=== PATIENT | female | born 1995 | race Caucasian/White ===

== ENCOUNTER 2017-09-23 20:25 | Outpatient (CLI) | payer MEDICAID, SELFPAY ==
[2017-09-23 20:57] VITALS: BMI 25.7
[2017-09-23 21:39] LABS: ROM Internal Control Test YES-OK TO RESULT pt. (Internal QC)
[2017-09-23 21:40] LABS: ROM Patient Test Negative (Negative)
[2017-09-23 22:05] VITALS: RESP 18
--- NOTE | 2017-09-25 08:12 | OB.TRI.NOTE ---
History of Present Illness Reason For Visit: R/O LABOR Home Medications Medication Instructions Recorded Vits [Prenatabs FA] 1 tablet PO DAILY 05/30/17 Allergies nickel Allergy (Verified 09/23/17 20:56) Rash Physical Exam Vitals: Vital Signs Resp 18 09/23/17 22:05 NST - FHR Rate Baby A Baseline: 135 Variability:: Moderate Accelerations:: 15 x 15 Decelerations:: Variable NST Reactive:: Yes Uterine Activity:: irregular Impression/Plan NST for false labor
== END 2017-09-23 22:05 | disposition home or self-care (01) ==
LOC: WPOUT 20:50 → WP 20:51
PROVIDERS: Family Provider Pediatrics; PCP Pediatrics; Visit Provider Obstetrics & Gynecology
DX: O47.9 False labor, unspecified (principal); Z3A.00 Weeks of gestation of pregnancy not specified
CPT/HCPCS: 59025; 59050; 84112; 99218; G0378

== ENCOUNTER 2017-09-28 06:00 | Inpatient (IN) | payer MEDICAID, SELFPAY ==
[2017-09-27 18:53] VITALS: BMI 25.2
[2017-09-27 23:37] LABS: Hemoglobin 13.2 g/dl (12.0-15.0); Mean Corp Hgb Conc 34.7 g/gl (32-36); Mean Corpuscular Hgb 30.1 pg (27.0-32.0); Mean Corpuscular Volume 86.6 fL (81-99); Mean Platelet Vol. 10.6 fl (6.2-12.0); Platelet Count 195 K/mm3 (150-450); RBC Distribution Width CV 12.4 % (11.6-14.6); RBC Distribution Width SD 39.6 fl (35.1-43.9); Red Blood Count 4.39 M/mm3 (4.2-5.4); White Blood Count 16.5 K/mm3 (4.4-11.0)
[2017-09-27 23:38] LABS: Scan Indicated on CBC? Y/N NO
[2017-09-27] MEDS: 0.9% NaCl Peripheral Flush Adult/Peds IV (23:46)
[2017-09-27] MEDS: Nalbuphine 10 MG/ML Ampul IV (23:46)
[2017-09-28] MEDS: Nalbuphine 10 MG/ML Ampul IV (05:00)
[2017-09-28] MEDS: Lactated Ringers 1,000 ML 50 ML IV ×2 (06:27→10:16)
--- NOTE | 2017-09-28 07:40 | HP.PCM_ITS ---
History Date of Admission: 09/28/17 Gestational age: 38.4 History of this : see [facility] prenatals Pertinent Past Medical History: none Allergies nickel Allergy (Verified 09/23/17 20:56) Rash Current Medications Acetaminophen (Tylenol) 325 - 650 mg PO Q4H PRN PRN PRN Reason: PAIN OR FEVER >100.4F Al Hydroxide/Mg Hydroxide (Mylanta Ii) 15 - 30 ml PO Q4H PRN PRN PRN Reason: INDIGESTION Citric Acid/Sodium Citrate (Bicitra) 30 ml PO UD PRN Lactated Ringer's () 1,000 mls @ 50 mls/hr IV .Q20H BROWN Nalbuphine HCl (Nubain) 5 - 10 mg IV Q3H PRN PRN PRN Reason: PAIN (4-10) Ondansetron HCl (Zofran) 4 mg IV Q8H PRN PRN PRN Reason: NAUSEA Promethazine HCl (Phenergan (Ll)) 6.25 - 12.5 mg IV Q4H PRN PRN; Protocol PRN Reason: IF NAUSEA PERSISTS Sodium Chloride () 5 - 30 ml IV UD PRN PRN Reason: SALINE FLUSH Last Admin: 09/27/17 23:46 Dose: 10 ml Sodium Chloride () 5 - 15 ml IV UD [facility] Smoking Status: Never smoker Alcohol: None Drug Use: none Number of Fetus(es): 1 Physical Exam General: Alert, Oriented x3 Abdomen: Soft, Non Tender, Non-Distended, Gravid Presentation: Cephalic Cervix Dilation (cm): 5 Station: -1 Effacement (%): 90 Assessment/Plan 21yo female @ 38&4 in labor Admit to L&D Epidural in place GBS negative EFW less than 4500g, patient with adequate pelvis AROM clear fluid FHT's - now 120's with mod variability & reassuring, s/p 6 minute decel with greg in 70's - resolved with oxygen/position changes, FSE placed Continue close observation
--- NOTE | 2017-09-28 08:44 | PCM.PN.BLA ---
Progress Note S: Patient laying back in bed, patient's mother and FOB at bedside providing support for patient. Patient remains comfortable after epidural. she reports occasional rectal pressure and has SVE recently done by nursing provider and was found to be 8cm/95%/-1. No further FHT decelerations noted O: VSS, Afebrile FHT baseline 120, minimal to moderate variability, no accels, no decels Ctx q 3-4 minutes SVE = Deferred A: 21 y/o , Term , Transition Stage of Labor, Category II FHT - reassuring P: 1) Continue present management 2) Encourage position changes 3) Anticipate Lauren Altamirano CNM
--- NOTE | 2017-09-28 11:50 | PCM.PN.BLA ---
Progress Note S: Patient found to be c/c/0 station by nursing staff at 0851. Patient labored down d/t not feeling urge to push yet. Patient then pushed on and off with nursing staff and is now +1 to +2 station. O: VSS, Afebrile FHT baseline 120, moderate variability, + accels, occasional early decels noted Ctx q 5-6 minutes, moderate strong to palpation SVE = 10/100/+2 A: Second stage of labor @ term, Labor Augmentation for protracted second stage P:1) Start pitocin IV per protocol for protracted second stage 2) Anticipate 3) OB back-up Dr. Ruggiero notified of patient progress Lauren Altamirano CNM
[2017-09-28] MEDS: Oxytocin 30 units/NS 500 ml 30 UNITS/500 ML IV.SOLN 334 UNITS IV (12:34)
--- NOTE | 2017-09-28 13:05 | PCM.OB.VAG ---
Vaginal Delivery Maternal Presentation: Active Labor Amniotic Membrane Rupture Type: Artificial Amniotic Fluid Description: Clear Final JUAN: 10/08/17 Final JUAN Source: LMP Gestational age: 38 Weeks and 4 Days Date of Procedure: 09/28/17 Pre-Operative Diagnosis: Labor Post-Operative Diagnosis: Surgery/ Procedure Performed: Spontaneous Vaginal Delivery Type of Anesthesia: Epidural Description of Procedure: Patient pushed well with guidance initially, epidural turned down so patient could fell urge to push and 2nd stage IV pitocin for labor augmentation used. PItocin only increased to 2 milliunits prior to delivery. Viable girl born over intact perineum at 1230 with spontaneous cry and respirations. Apgars 8 and 9. dried and stimulated and mouth and nose bulb suctioned. Short umbilical cord noted, cord clamped and cut by FOB once pulsing slowed. Placenta then delivered spontaneously via Barraza mechanism intact with 3VC. Placenta notable for 3cm/3cm beige-mobley lesion and calcifications. FF to massage and was midline and 2FB below umbilicus. Pitocin IV per protocol given for active management of the 3rd stage and to achieve hemostasis. EBL - 250cc. Upon inspection of vaginal vault, 1st degree Rt. and Lt. vaginal wall lacerations near introitus noted and repaired in the usual fashion using 3-0 Rapide suture. Sponge and needle count correct. Vaginal sweep negative. Baby to breast, neux-ur-lvab initiated. Lauren Altamirano CNM Presentation: Vertex, TUAN Placental Delivery Description: Spontaneous Placenta Disposition: [facility] Cord Vessel Description: 3 Vessels Cord Entanglement: None Estimated Blood Loss: 250 A gender: Female (1 minute): 8 (5 minute): 9 Episiotomy Description: None Laceration: Vaginal Extension/lac, 1st degree - Right and Left side of vaginal garcia Medications given after delivery: IV Pitocin Complications: - - Short cord noted at delivery
[2017-09-28] MEDS: Oxytocin 30 units/NS 500 ml 30 UNITS/500 ML IV.SOLN 167 UNITS IV (13:06)
[2017-09-28] MEDS: Acetaminophen 500 MG Tablet 1000 MG PO (14:37)
[2017-09-28 16:34] VITALS: BP 121/58; PULSE 117; RESP 16; TEMP 37.3; O2SAT 99
[2017-09-28] MEDS: Ibuprofen 600 MG Tablet PO (20:55)
[2017-09-28 20:58] VITALS: BP 126/74; PULSE 113; RESP 16; TEMP 37.5; O2SAT 97
[2017-09-29 00:30] VITALS: BP 109/63; PULSE 97; RESP 16; TEMP 36.7; O2SAT 98
[2017-09-29] MEDS: Ibuprofen 600 MG Tablet PO ×4 (04:06→21:52)
[2017-09-29 04:07] VITALS: BP 128/80; PULSE 96; RESP 16; TEMP 36.7; O2SAT 99
[2017-09-29 04:27] LABS: Hematocrit 35.7 % (37-47); Hemoglobin 12.8 g/dl (12.0-15.0); Mean Corp Hgb Conc 35.9 g/gl (32-36); Mean Corpuscular Hgb 30.8 pg (27.0-32.0); Mean Platelet Vol. 10.2 fl (6.2-12.0); Platelet Count 173 K/mm3 (150-450); RBC Distribution Width CV 12.4 % (11.6-14.6); RBC Distribution Width SD 37.7 fl (35.1-43.9); Red Blood Count 4.15 M/mm3 (4.2-5.4); White Blood Count 15.4 K/mm3 (4.4-11.0)
[2017-09-29 04:31] LABS: Scan Indicated on CBC? Y/N NO
[2017-09-29] MEDS: Acetaminophen 500 MG Tablet 1000 MG PO ×2 (05:42→20:26)
--- NOTE | 2017-09-29 06:26 | NURSING ---
Pt continues to report severe neck and upper back back after Tylenol, Motrin, shower, and kpad. pt rating pain 10/10 denies headache/dizziness or visual changes. Jonny WESLEY called and updated. Jonny states she will come and evaluate pt
--- NOTE | 2017-09-29 07:00 | PCM.PN.BLA ---
Progress Note S: Page received from Maddy PP nurse reporting patient is having severe neck pain. Patient reports pain started last night and now has progressively worsened. Patient reports that due to pain, it has made it difficult to breastfeed. Patient reports sharp soreness. Denies that pain radiates up into head or down back. Patient denies numbness or tingling in extremities. Patient has been taking Ibuprofen as directed around clock with Tylenol dosing in between but nothing has helped relieve the pain. Patient denies fever. Reports neck pain is worst when she flexes neck or moves head side to side. O: BP = 128/80, T = 98.1, HR = 96, R = 16. CBC = WNL this AM, WBC decreased from yesterday (16 to 15). A+O x 3, NAD Full ROM of neck, no nuchal rigidity noted. No neck masses, trachea midline. CN II-XII intact EOMs intact, PERRLA Breasts filling, nipples without cracks or blisters, no erythema or ecchymoses noted Abdomen NT x 4 quadrants, FF @ 2FB below umbilicus No edema in extremities, negative calf tenderness, +2/4 reflexes in LE Scant rubra lochia, perineum intact A: PPD #1, Neck pain - likely musculoskeletal pain in nature P: 1) Encourage patient to continue PO Ibuprofen 600mg PO q 6 hours with dosing of Tylenol in between 2) Flexeril 10mg PO TID PRN moderate/severe pain 3) Encourage use of heat pad, encourage massage of muscles 4) consider PT consult if pain does not improve with Flexeril 5) Continue and other PP orders. Lauren NELSONM
--- NOTE | 2017-09-29 07:13 | DCINST_ITS ---
Discharge Diet: No Restrictions Discharge Activity: Return to Normal Activity, May not drive while taking narcotic pain medications., May Shower May resume sexual activity in: 4-6 weeks Additional Activity Instructions:: Nothing in the vagina for 4-6 weeks. You may return to work/school in 6 weeks. Call your doctor if your incision/area has: Continuous Slow Oozing, Sudden Increased Bleeding, Increased Pain/ Swelling, Increased Redness, Foul Smelling Discharge Call your doctor if you observe: Fever of 101 or Higher, Coldness, Increased Pain, Inability to urinate, Inability to have a bowel movement, Using more than one pad per hour, Uncontrolled pain Additional Instructions: If you experience any of the following, contact your healthcare provider. * Bleeding that soaks a pad every hour for 2 hours * Fever 100.4 or higher * Unrelieved incision or abdominal pain * Swelling, redness, discharge or bleeding from your incision or episiotomy site * Your incision begins to separate * Problems urinating (including inability to urinate or burning while urinating) . * Visual changes * Severe headache * Flu-like symptoms * Pain or redness in one of both of your breasts * Pain, warmth, tenderness or swelling in your legs, especially the calf area * Frequent nausea and vomiting * Symptoms of depression or anxiety If you experience any of the following, call 911 or go to the nearest Emergency Room. * Chest pain * Problems breathing * Seizure activity * Partial or complete paralysis of a body part, slurred speech, weakness or drooping of the face, or a sudden inability to walk or hold your balance Allergies/Adverse Reactions: Allergies nickel Allergy (Verified 09/23/17 20:56) Rash Medications to take at Discharge Vits [Prenatabs FA ] 1 tablet PO DAILY 05/30/17 When: Call to make an appointment with your doctor in 6 weeks. If you had elevated Blood Pressure or 4th degree laceration you will need to be seen in 2 weeks. Primary Care Physician: Gisela Queen MD [Primary Care Provider] -
[2017-09-29 07:35] VITALS: BP 117/62; PULSE 90; RESP 16; TEMP 36.8
[2017-09-29 13:35] VITALS: BP 108/56; PULSE 98; RESP 14; TEMP 37.2
[2017-09-29 20:00] VITALS: BP 134/80; PULSE 102; RESP 18; TEMP 37.1; O2SAT 98
[2017-09-30 02:50] VITALS: BP 113/57; PULSE 70; RESP 16; TEMP 36.4
--- NOTE | 2017-09-30 08:21 | PCM.PN.BLA ---
Progress Note S: Patient sitting up in bed at this time. Patient reports improvement of neck pain after starting Flexeril pain medication and more consistent use of heat pad. Patient denies any issues with urination or ambulation. Reports that bresatfeeding is going well. Patient desires discharge to home today. O: BP = 113/57, T = 97.6, HR = 70, R = 16 CBC = 15.4> 12.8/35.7 < 173 Nipples without cracks or blisters, no erythema noted Abdomen NT x 4 quadrants, FF midline 3FB below umbilicus +2/4 reflexes in LE, no LE edema, no calf tenderness noted Scant rubra lochia, perineum intact A: 21 y/o , PPD #2 following , normal course P: 1) Discharge patient to home pending discharge 2) Rx Flexeril 10mg PO TID PRN neck pain #30, no refills sent to patient's pharmacy 3)Anticipatory health teaching given 4) RTC at [facility] at 6 weeks PP Lauren Altamirano CNM
--- NOTE | 2017-09-30 08:29 | PN_ITS ---
Progress Note S: Patient sitting up in bed at this time. Patient reports improvement of neck pain after starting Flexeril pain medication and more consistent use of heat pad. Patient denies any issues with urination or ambulation. Reports that bresatfeeding is going well. Patient desires discharge to home today. O: BP = 113/57, T = 97.6, HR = 70, R = 16 CBC = 15.4> 12.8/35.7 < 173 Nipples without cracks or blisters, no erythema noted Abdomen NT x 4 quadrants, FF midline 3FB below umbilicus +2/4 reflexes in LE, no LE edema, no calf tenderness noted Scant rubra lochia, perineum intact A: 21 y/o , PPD #2 following , normal course P: 1) Discharge patient to home pending discharge 2) Rx Flexeril 10mg PO TID PRN neck pain #30, no refills sent to patient's pharmacy 3)Anticipatory health teaching given 4) RTC at [facility] at 6 weeks PP Lauren Altamirano CNM
[2017-09-30 08:45] VITALS: BP 132/97; PULSE 82; RESP 16; TEMP 36.8; O2SAT 97
--- NOTE | 2017-09-30 11:30 | NURSING ---
mother and baby bands verified by nurse and mother. mother signed baby discharge sheet.
== END 2017-09-30 11:42 | disposition home or self-care (01) | DRG 372 ==
LOC: WPOUT 06:08 → WP 10:38
PROVIDERS: Advanced Practice Midwife; Obstetrics & Gynecology; Admitting Provider Obstetrics & Gynecology; Family Provider Pediatrics; PCP Pediatrics; Visit Provider Obstetrics & Gynecology
DX: O76 Abnormality in fetal heart rate and rhythm complicating labor and delivery (principal); O90.89 Other complications of the puerperium, not elsewhere classified; O71.4 Obstetric high vaginal laceration alone; M54.2 Cervicalgia; O69.3XX0 Labor and delivery complicated by short cord, not applicable or unspecified; Z3A.38 38 weeks gestation of pregnancy; Z37.0 Single live birth
CPT/HCPCS: 59025; 59050; 85027; 86850; 86900; 99218; J7120; A4216; G0378

== ENCOUNTER 2018-06-11 20:35 | Emergency (ER) | payer MEDICAID, SELFPAY ==
[2018-06-11 20:36] VITALS: BP 141/80; PULSE 92; RESP 14; TEMP 37.1; O2SAT 98; BMI 22.2
--- NOTE | 2018-06-11 21:28 | ED.VISSUMM ---
- ER Visit Summary Date of Service: 06/11/18 Chief Complaint: Injury to right index finger carving pumpkins History of Present Illness: The patient is a 22 F who is right-hand dominant presents with laceration to her right index finger volar surface. She was carving a pumpkin. Immunization up-to-date. She presents because of bleeding. Physical Examination: Vital signs noted blood pressure is elevated 141/80. The flexor digitorum superficialis and flexor digitorum profundus are intact. Capillary refill is normal. Sensation is normal. Test Results: None Emergency Department Course and Treatment: The finger was anesthetized by digital block. The wound was irrigated with 200 cc normal saline. Using 5-0 Ethilon 3 simple interrupted sutures were placed with good cosmesis hemostasis. Treatment Plan: Wound care Disposition: Discharged home in stable improved condition Impression: 1.5 cm laceration right index finger initial encounter This note was generated with [employer] dictation software. It may contain incorrect words, spelling, and punctuation that were not noted in review of the chart prior to signing ED Disposition - Plan for ED Patient: Disposition: Home or Assisted Living Chief Complaint: Laceration Instructions: ED Laceration Hand Referrals: Gisela Queen MD [Primary Care Provider] - 7 Days for suture removal
[2018-06-11 21:32] VITALS: RESP 17
--- NOTE | 2018-06-11 21:32 | ED.DCSUM_ITS ---
- ER Visit Summary Date of Service: 06/11/18 Chief Complaint: Injury to right index finger carving pumpkins History of Present Illness: The patient is a 22 F who is right-hand dominant presents with laceration to her right index finger volar surface. She was carving a pumpkin. Immunization up-to-date. She presents because of bleeding. Physical Examination: Vital signs noted blood pressure is elevated 141/80. The flexor digitorum superficialis and flexor digitorum profundus are intact. Capillary refill is normal. Sensation is normal. Test Results: None Emergency Department Course and Treatment: The finger was anesthetized by digital block. The wound was irrigated with 200 cc normal saline. Using 5-0 Ethilon 3 simple interrupted sutures were placed with good cosmesis hemostasis. Treatment Plan: Wound care Disposition: Discharged home in stable improved condition Impression: 1.5 cm laceration right index finger initial encounter This note was generated with [employer] dictation software. It may contain incorrect words, spelling, and punctuation that were not noted in review of the chart prior to signing ED Disposition - Plan for ED Patient: Disposition: Home or Assisted Living Chief Complaint: Laceration Instructions: ED Laceration Hand Referrals: Gisela Queen MD [Primary Care Provider] - 7 Days for suture removal
== END 2018-06-11 21:44 | disposition home or self-care (01) ==
PROVIDERS: Emergency Provider Emergency Medicine; Family Provider Pediatrics; PCP Pediatrics
DX: S61.210A Laceration without foreign body of right index finger without damage to nail, initial encounter (principal); W26.9XXA Contact with unspecified sharp object(s), initial encounter; Y93.89 Activity, other specified; Y92.89 Other specified places as the place of occurrence of the external cause; Y99.8 Other external cause status
CPT/HCPCS: 12001; 99283

== ENCOUNTER 2019-07-15 16:26 | Emergency (ER) | payer MEDICAID, SELFPAY ==
[2019-07-15 16:26] VITALS: BMI 25.2
[2019-07-15 16:27] VITALS: BP 128/84; PULSE 118; RESP 16; TEMP 36.6; O2SAT 100; BMI 21.3
--- NOTE | 2019-07-15 16:35 | ED.VIS.FEGU ---
History of Present Illness Chief Complaint: Complaint Informant: Patient Narrative: Patient presenting for evaluation secondary to dysuria. Patient states that over the course of about the last week and a half she has been dealing with urinary hesitancy and frequency. It is associated with some dysuria. Patient endorses that she has a mild amount of low back pain. She denies any constitutional symptoms such as fevers chills nausea vomiting diarrhea. Patient states that she is not had any significant vaginal bleeding or discharge. Last normal menstrual cycle was on 06/24. Patient is on control. Pain is mild with no exacerbating relieving factors. Past Medical History - Allergies and Home Meds Allergies/Adverse Reactions: Allergies nickel Allergy (Verified 07/15/19 16:29) Rash Primary Care Physician: Gisela Queen MD [Primary Care Provider] - Past Medical History: None Smoking Status: Never smoker Review of Systems All systems negative except as indicated General: Denies: Chills, Fever, Sweats Eyes: Denies: Visual changes - bilaterally, Diplopia ENT: Denies: Rhinorrhea, Sore throat Cardiovascular: Denies: Chest pain, Palpitations Respiratory: Denies: Dyspnea, Cough, Dyspnea on exertion Gastrointestinal: Denies: Abdominal pain, Nausea, Vomiting, Diarrhea, Melena, Hematochezia Genitourinary: Reports: Dysuria Musculoskeletal: Denies: Back pain, Extremity Pain Skin: Denies: Rash, Wounds Neurological: Denies: Headache, Weakness, Numbness Psych: Denies: Depression Endocrine: Denies: Polydipsia Hematologic: Denies: Easy bleeding Allergy: Denies: Uticaria Physical Exam Vital Signs/Narrative: Vital Signs Temp Pulse Resp BP Pulse Ox 07/15/19 16:27 98 F 118 H 16 128/84 H 100 Inital Vital Signs reviewed: Yes General: Well nourished, Well developed Head: Normocephalic, Atraumatic Eyes: Perrl, EOMI ENT: Moist mucous membranes, No rhinorrhea Neck: Supple, Nontender Cardiovascular: Regular rhythm, No murmurs, Tachycardia Respiratory: No distress, CTA bilaterally, Chest nontender Abdomen: Soft, Tender - Minimal suprapubic, - - No CVA tenderness to percussion. Negative for: Guarding, Rebound tenderness : Speculum exam: Normal external genitalia, No vaginal lesions, No vaginal discharge, No blood in vault, No active bleeding Bimanual exam: No cervical motion tenderness, Os closed, Normal size uterus, Nontender uterus Back: Nontender, Normal Inspection Extremities: Nontender, No edema Skin: Normal color, No rash Neurological: Alert, Oriented x3, Cranial nerves II-XII grossly intact, Normal Strength, Normal Sensation Psychological: Normal affect Diagnostic/Tx/Re-eval - Medical Decision/Diagnostic Studies Patient presented secondary to dysuria frequency and pelvic discomfort. Urinalysis was obtained which really did not show significant evidence of urinary tract infection. I went back in and reevaluated the patient. She states that she has a new sexual partner within the last month. She did endorse to me at that time that she has a mild amount of vaginal discharge. Chaperoned pelvic exam was performed at that point which shows thin white discharge within the vaginal vault. Patient does not have evidence of cervicitis or cervical motion tenderness, and had mild tenderness of her adnexa bilaterally. At this point I believe the patient likely should be empirically treated for STI. She was given Rocephin, azithromycin, Flagyl, and Zofran. She will follow-up on her results when they become available. Patient was discharged in stable condition. Disposition: Home ED Disposition - Plan for ED Patient: Disposition: Home or Assisted Living Diagnosis: Pelvic pain Instructions: PELVIC PAIN, Unknown Cause, CERVICITIS (STD), Treated Referrals: Gisela Queen MD [Primary Care Provider] - 3-5 Days
[2019-07-15 16:44] LABS: Red Blood Cells-Urine 0 SEEN /hpf (0-5); Squamous Epithelial Cells - UA 0 SEEN /hpf (5-10)
[2019-07-15 16:52] LABS: Color, Urine Yellow (Yellow); Glucose, Dipstick Normal (Normal); Ketone-Dipstick 5 mg/dl (Negative); Leukocyte Esterase-Dipstick 25 /ul (Negative); Nitrite-Dipstick Negative (Negative); Occult Blood-Urine Negative /ul (Negative); Protein-Dipstick 30 mg/dl (Negative); Urine Bilirubin Dipstick Negative (Negative); Urine Clarity Sl. Cloudy (Clear); Urine Urobilinogen Normal (Normal); Urine pH 6.5 (5.0 - 8.0)
[2019-07-15 17:03] LABS: Internal QC Validated? YES +Cl - CLEAR BKGD; Pregnancy, Urine Negative Negative
[2019-07-15 17:05] LABS: White Blood Cells 0-5 SEEN /hpf (0-5)
[2019-07-15 17:06] LABS: Bacteria RARE /hpf (None Seen); Mucous, Urine 1+ /hpf (<or=2+)
[2019-07-15] MEDS: Azithromycin 250 MG Tablet 1000 MG PO (19:10)
[2019-07-15] MEDS: metroNIDAZOLE 500 MG Tablet 2000 MG PO (19:10)
[2019-07-15] MEDS: Ondansetron ODT 4 MG Tablet 8 MG PO (19:11)
[2019-07-15] MEDS: Ceftriaxone 500 MG Vial 250 MG IM (19:12)
[2019-07-15 20:48] LABS: Chlamydia Trachomatis by PCR POSITIVE (Negative); Neisserai gonorrhoeae by PCR Negative (Negative); Probe Check PASS
--- NOTE | 2019-07-15 21:33 | ED.RN ---
THIS NURSE ATTEMPTED TO CONTACT PT WITH LAB RESULTS. VOICEMAIL NOT SET UP. UNABLE TO LEAVE A MESSAGE
== END 2019-07-15 19:16 | disposition home or self-care (01) ==
PROVIDERS: Emergency Provider Emergency Medicine; Family Provider Pediatrics; PCP Pediatrics
DX: R10.2 Pelvic and perineal pain (principal); N89.8 Other specified noninflammatory disorders of vagina; R30.0 Dysuria; R39.11 Hesitancy of micturition; R35.0 Frequency of micturition; M54.5 Low back pain; Z79.3 Long term (current) use of hormonal contraceptives
CPT/HCPCS: 81001; 81025; 87086; 87088; 87210; 87491; 87591; 96372; 99283